=== PATIENT | female | born 1970 | race Caucasian/White ===

== ENCOUNTER 2017-08-18 17:35 | Emergency (ER) | payer OTHER ==
[~2017-08-18] VITALS: Ht 162.6 cm; Wt 98.9 kg
[2017-08-18] MEDS ORDERED: HYDROCHLOROTHIA25 MG PO (17:48)
[2017-08-18] MEDS ORDERED: SYNTHROID125 MCG PO (17:48)
[2017-08-18] MEDS ORDERED: VITAMIN D2000 UNIT PO (17:49)
[2017-08-18] MEDS ORDERED: BIOTIN1 MG PO (17:49)
[2017-08-18] MEDS ORDERED: MUCINEX600 MG PO (17:51)
[2017-08-18] MEDS ORDERED: ZITHROMAX250 MG PO (17:54)
== END 2017-08-18 18:00 | disposition home or self-care (01) ==
LOC: ED 17:35
DX: J06.9 Acute upper respiratory infection, unspecified (principal); E03.9 Hypothyroidism, unspecified; Z79.899 Other long term (current) drug therapy
CPT/HCPCS: 99283

== ENCOUNTER 2019-06-23 20:02 | Emergency (ER) | payer OTHER ==
[~2019-06-23] VITALS: Ht 162.6 cm; Wt 95.2 kg
--- OUTSIDE RECORDS SUMMARY | ~2019-06-23 | XMS | Clinical Summary ---
Demographics + + + | Address | [address] | | | [place] [address] | + + + | Home Phone | | + + + | Preferred Language | Unknown | + + + | Marital Status | Legally | + + + | Oriental Orthodox Affiliation | 1013 | + + + | Race | Unknown | + + + | Ethnic Group | Unknown | + + + Author + + + | Author | [facility] (Historical as of | | | 01-25-19) | + + + | Organization | [facility] (Historical as of | | | 01-25-19) | + + + | Address | Unknown | + + + | Phone | Unavailable | + + + Support + + +---------+ + | Name | Relationship | Address | Phone | + + +---------+ + | Detailed,Message | ECON | Unknown | | + + +---------+ + | None,Given | ECON | Unknown | | + + +---------+ + Care Team Providers + +------+ + | Care Medication Aide Name | Role | Phone | + +------+ + PP | Unavailable | + +------+ + Allergies No Known Allergies Current Medications + + +-------+---------+------+------+-------+ | Prescription | Sig. | Disp. | Refills | Star | End | Statu | | | | | | t | Date | s | | | | | | Date | | | + + +-------+---------+------+------+-------+ | sertraline | Take 50 mg by mouth | | | | | Activ | | (ZOLOFT) 50 MG | daily. | | | | | e | | tablet | | | | | | | + + +-------+---------+------+------+-------+ | levothyroxine | Take 112 mcg by | | | | | Activ | | (SYNTHROID, | mouth daily. | | | | | e | | LEVOTHROID) 112 MCG | | | | | | | | tablet | | | | | | | + + +-------+---------+------+------+-------+ | omeprazole | Take 10 mg by mouth | | | | | Activ | | (PRILOSEC) 10 MG | daily. | | | | | e | | capsule | | | | | | | + + +-------+---------+------+------+-------+ | Multiple Vitamin | Take 1 capsule by | | | | | Activ | | (MULTIVITAMIN) | mouth daily. 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 Pap | | done | + + + + + | Depression | 08/25/2011 | + + + Family History + + +------+ + | Medical History | Relation | Name | Comments | + + +------+ + | Depression | Brother | | | + + +------+ + | Cancer | Mother | | thyroid cancer | + + +------+ + | Diabetes type II | Mother | | | + + +------+ + | Thyroid disease | Mother | | | + + +------+ + | Early | Paternal | | | | | Grandfath | | | | | er | | | + + +------+ + | Heart disease | Paternal | | | | | Grandfath | | | | | er | | | + + +------+ + + +------+ + + | Relation | Name | Status | Comments | + +------+ + + | Brother | | Alive | | + +------+ + + | Father | | Alive | | + +------+ + + | Maternal Grandfather | | | | + +------+ + + | Maternal Grandmother | | | | + +------+ + + | Mother | | Alive | | + +------+ + + | Paternal Grandfather | | | | + +------+ + + | Paternal Grandmother | | Alive | | + +------+ + + Social History + +-------+ +--------+------+ | Tobacco Use | Types | Packs/Day | Years | Date | | | | | Used | | + +-------+ +--------+------+ | Never Smoker | | | | | + +-------+ +--------+------+ + +---+---+---+ | Smokeless Tobacco: | | | | | Never Used | | | | + +---+---+---+ + + +---------+ + | Alcohol Use | Drinks/We | oz/Week | Comments | | | ek | | | + + +---------+ + | Yes | 2 | 1.0 | | | | Standard | | | | | drinks or | | | | | | | | | | equivalen | | | | | t | | | + + +---------+ + + + + | Sex Assigned at | Date Recorded | | | | + + + | Not on file | | + + + Last Filed Vital Signs + + + + | Vital Sign | Reading | Time Taken | + + + + | Blood Pressure | 137/97 | 01/07/2016 10:00 AM PDT | + + + + | Pulse | 64 | 01/07/2016 10:00 AM PDT | + + + + | Temperature | 36.8 C (98.2 F) | 06/25/2011 12:49 PM PST | + + + + | Respiratory Rate | 14 | 06/25/2011 12:49 PM PST | + + + + | Oxygen Saturation | 99% | 06/25/2011 12:49 PM PST | + + + + | Inhaled Oxygen | - | - | | Concentration | | | + + + + | Weight | 90.7 kg (200 lb) | 01/07/2016 10:00 AM PDT | + + + + | Height | 162.6 cm (5' 4") | 01/07/2016 10:00 AM PDT | + + + + | Body Mass Index | 34.33 | 01/07/2016 10:00 AM PDT | + + + + Plan of Treatment + + + + + | Health Maintenance | Due Date | Last Done | Comments | + + + + + | EGD SCREENING | | | | | | 2 | | | + + + + + | Vaccine: | | | | | Dtap/Tdap/Td (1 - | 1 | | | | Tdap) | | | | + + + + + | Cervical Cancer | | 03/26/2013, 06/28/2012, | | | Screening (Pap) | 8 | 09/01/2011, Additional history | | | | | exists | | + + + + + | Vaccine: Influenza | | | | | (#1) | 9 | | | + + + + + Results Not on filefrom Last 3 Months Insurance + +--------+ +------+-------+---------+ | Payer | Benefi | Subscriber | Type | Phone | Address | | | t Plan | ID | | | | | | / | | | | | | | Group | | | | | + +--------+ +------+-------+---------+ | [employer] | [employer] | [id number] | | | | | | WORK | | | | | + +--------+ +------+-------+---------+ + +--------+ +--------+ + + | Guarantor Name | Accoun | Relation to | Date | Phone | Billing Address | | | t Type | Patient | of | | | | | | | | | | + +--------+ +--------+ + + | JULIANA CASTRO | Person | Self [birth year] Home: | [address] | | | al/Rey | | 1971 | [phone] | [place] | | | [place] | | | [address] | [phone] | + +--------+ +--------+ + + | JULIANA HINTON | Person | Self [birth year] | Home: | [address] | | | al/Fam | | 1970 | +- | [place] | | | [place] | | | [address] | [phone] | + +--------+ +--------+ + +
--- OUTSIDE RECORDS SUMMARY | ~2019-06-23 | XMS | Clinical Summary ---
Demographics + + + | Address | [address] | | | [place] [address] | + + + | Home Phone | | + + + | Preferred Language | Unknown | + + + | Marital Status | Legally | + + + | Jew Affiliation | 1013 | + + + | Race | Unknown | + + + | Ethnic Group | Unknown | + + + Author + + + | Author | [facility] (Historical as of | | | 01-25-19) | + + + | Organization | [facility] (Historical as of | | | 01-25-19) [...] Team Providers + +------+ + | Care Histopathologist Name | Role | Phone | + [...] +------+-------+---------+ | [employer] | [employer] | [id number] | | | | | | WORK [...] | [place] | | | [address] | [phone] | + +--------+ +--------+ + + | JULIANA HINTON | Person | Self [birth year] | Home: | [address] | | | al/Fam | | 1970 | +- | [place] | | | [place] | | | [address] | [phone] | + +--------+ +--------+ + +
[~2019-06-23 20:02] MED LIST: BIOTIN1 MG PO; HYDROCHLOROTHIA25 MG PO; MUCINEX600 MG PO; SYNTHROID125 MCG PO; VITAMIN D2000 UNIT PO; ZITHROMAX250 MG PO
[2019-06-23] MEDS ORDERED: ESTRADIOL1 MG PO (20:21)
[2019-06-23] MEDS ORDERED: ZYRTEC10 MG PO (20:22)
[2019-06-23] MEDS ORDERED: KEFLEX500 MG PO (21:45)
== END 2019-06-23 22:06 | disposition home or self-care (01) ==
LOC: ED 20:02
DX: S39.011A Strain of muscle, fascia and tendon of abdomen, initial encounter (principal); E03.9 Hypothyroidism, unspecified; K11.20 Sialoadenitis, unspecified; F32.9 Major depressive disorder, single episode, unspecified; Z79.899 Other long term (current) drug therapy; X58.XXXA Exposure to other specified factors, initial encounter
CPT/HCPCS: 80053; 81001; 84703; 85025; 99284

== ENCOUNTER 2022-08-08 03:44 | Emergency (ER) | payer OTHER ==
[~2022-08-08] VITALS: Ht 162.6 cm; Wt 98.0 kg
[~2022-08-08 03:44] MED LIST changes: +ESTRADIOL1 MG PO; +KEFLEX500 MG PO; +ZYRTEC10 MG PO
[2022-08-08] MEDS ORDERED: LISINOPRIL20 MG PO (04:58)
--- NOTE | 2022-08-09 16:41 | EKG ---
[facility] [address] [facility] [place] [address] Signed Normal sinus rhythm Cannot rule out Anterior infarct , age undetermined Abnormal ECG No previous ECGs available Confirmed by AMBER MAURO MD ([id number]) on 08/09/2022 4:40:59 PM Electronically Signed By: AMBER MAURO MD 08/09/22 164 PATIENT NAME: MIR HINTON Electrocardiogram DATE OF : 72 PHYSICIAN: AMBER MAURO MD REPORT #: [id number] REPORT IS CONFIDENTIAL AND NOT TO BE RELEASED WITHOUT AUTHORIZATION
== END 2022-08-08 05:14 | disposition home or self-care (01) ==
LOC: ED 03:44
DX: R07.89 Other chest pain (principal); E03.9 Hypothyroidism, unspecified; Z79.899 Other long term (current) drug therapy
CPT/HCPCS: 36415; 71045; 80053; 83735; 84436; 84443; 84484; 84703; 85025; 93005; 93010; 99285-25